=== PATIENT | female | born 1985 ===

== ENCOUNTER 2017-12-04 18:07 | Inpatient (IN) | payer OTHER ==
[~2017-12-04] VITALS: Ht 154.9 cm; Wt 83.0 kg
[2017-12-05] MEDS ORDERED: PRENATAL TABLE1 EAC4 PO (14:39)
[2017-12-07] MEDS ORDERED: VALTREX1000 MG PO (08:17)
== END 2017-12-07 14:20 | DRG 774 ==
LOC: LDR 18:07 → OB/GYN 12-05 18:04
PROC: 4A1HXCZ Monitoring of Products of Conception, Cardiac Rate, External Approach (ICD-10-PCS; 2017-12-04)
PROC: 0KQM0ZZ Repair Perineum Muscle, Open Approach (ICD-10-PCS; principal; 2017-12-05)
PROC: 10E0XZZ Delivery of Products of Conception, External Approach (ICD-10-PCS; 2017-12-05)
PROC: 3E033VJ Introduction of Other Hormone into Peripheral Vein, Percutaneous Approach (ICD-10-PCS; 2017-12-05)
DX: O70.1 Second degree perineal laceration during delivery (principal); O98.513 Other viral diseases complicating pregnancy, third trimester; Z37.0 Single live birth; B00.89 Other herpesviral infection; Z3A.39 39 weeks gestation of pregnancy

== ENCOUNTER → 2018-09-16 15:28 | Outpatient (CLI) | payer OTHER ==
[~2018-09-16 15:28] MED LIST: CODE1TAB37 PO; PRENATAL TABLE1 EAC4 PO; VALTREX1000 MG PO
== END | disposition home or self-care (01) ==
LOC: EKG 15:28
DX: R07.89 Other chest pain (principal)

== ENCOUNTER 2018-09-18 06:06 | Day surgery (SDC) | payer OTHER ==
[~2018-09-18 06:06] MED LIST changes: -CODE1TAB37 PO
[2018-09-18] MEDS ORDERED: CODE1TAB37 PO (12:43)
== END 2018-09-18 15:10 | disposition home or self-care (01) ==
LOC: CIR.AMB 06:06
DX: Z30.2 Encounter for sterilization (principal)